=== PATIENT | male | born 1935 | race African-American/Black ===

== ENCOUNTER 2016-08-18 09:04 | Day surgery (SDC) | payer OTHER ==
[~2016-08-18] VITALS: Ht 167.6 cm; Wt 66.4 kg
[2016-08-18 09:33] VITALS: Ht 167.6 cm; Wt 66.4 kg
[2016-08-18 09:58] VITALS: BP 151/86; PULSE 68; RESP 23
[2016-08-18] MEDS ORDERED: CLOP300T15 PO (09:59)
[2016-08-18] MEDS ORDERED: ATORVASTATIN PO (09:59)
[2016-08-18] MEDS ORDERED: PANT40TA4 PO (09:59)
[2016-08-18] MEDS ORDERED: CARVEDILOL PO (09:59)
[2016-08-18] MEDS ORDERED: ISM20 PO (09:59)
[2016-08-18] MEDS ORDERED: ASPI81TA3 PO (09:59)
[2016-08-18] MEDS ORDERED: LORA-441 PO (09:59)
[2016-08-18] MEDS ORDERED: LOSARTAN PO (09:59)
[2016-08-18] MEDS ORDERED: DOCU-144 PO (09:59)
[2016-08-18] MEDS ORDERED: FLOMAX PO (09:59)
[2016-08-18] MEDS ORDERED: FAMO20TA18 PO (09:59)
[2016-08-18] MEDS ORDERED: CLONIDINE PO (09:59)
[2016-08-18] MEDS ORDERED: PROPOFOL 20 ML ONE (10:03)
[2016-08-18] MEDS ORDERED: MIDAZOLAM 1 MG/ML 2 ML INJ ONE (10:04)
[2016-08-18] MEDS ORDERED: LIDOCAINE 2% (SDV) 5 ML INJ ONE (10:04)
[2016-08-18] MEDS ORDERED: FLUMAZENIL 0.5 MG INJ ONE (10:17)
[2016-08-18 11:04] VITALS: BP 149/83; PULSE 62; RESP 16
--- NOTE | 2016-08-18 12:08 | GILP ---
DATE OF PROCEDURE: 08/18/2016 NAME OF PROCEDURE: Esophagogastroduodenoscopy and biopsy. SURGEON: Anuradha Langley MD PREOPERATIVE DIAGNOSES: 1. Abdominal pain. 2. Chronic heartburn. 3. Weight loss. POSTOPERATIVE DIAGNOSES: 1. Gastroesophageal reflux disease. 2. Gastritis with erosions. 3. Gastric mucosal biopsies were taken for Helicobacter pylori test. INDICATION FOR THE PROCEDURE: Mr. Pawan Fuller is an 80-year-old male patient who had upper abdom inal pain and chronic heartburn, not responding to therapy. The patient also had history of weight loss. The patient was scheduled for endoscopic examination for further evaluation. The procedure and possible complications were well explained to the patient. The patient understood and consented to the procedure. DESCRIPTION OF PROCEDURE: Under the influence of anesthesia, the gastroscope was carefully introduc ed into the esophagus and under direct vision, it was advanced to the stomach and through the pyloru s into the duodenal bulb and descending duodenum. FINDINGS: ESOPHAGUS: The mucosa was normal. STOMACH: The patient had gastritis with erosions. Gastric mucosal biopsies were taken for H. pylor i test. DUODENUM: Normal. He tolerated the procedure very well and there was no complication from the procedure. At the end o f the procedure, he was awake with stable vital signs and he was discharged home to the care of his family. IMPRESSION: 1. Gastroesophageal reflux disease. 2. Gastritis with erosions. 3. Gastric mucosal biopsies were taken for Helicobacter pylori test. PLAN: 1. Continue pantoprazole and Pepcid. 2. Await H. pylori test report. Dictated By: ANURADHA NOVA/AVTAR Conf#: [id number] DID#: [id number] CC: ANURADHA LANGLEY MD;*EndCC*
--- NOTE | 2016-08-19 13:45 | CONS ---
DATE OF ADMISSION: 08/18/2016 DATE OF CONSULTATION: PATIENT NAME: PAWAN SAXENA TYPE OF CONSULTATION: Preoperative gastroenterology consultation. Dear Dr. Timmons: I thank you very much for this kind referral. HISTORY OF PRESENT ILLNESS: Mr. Pawan Saxena is an 80-year-old male patient who has been referred to me for further evaluation of upper abdominal pain and chronic heartburn, not responding to thera py with pantoprazole and Pepcid. There is no definite past history of peptic ulcer disease. He is not taking any nonsteroidal anti-inflammatory agent other than baby aspirin a day. There is no hist ory of gallstones. He does not have any fever, chills or jaundice. There is no history of liver di sease. According to the patient's daughters, he had a recent abdominal CT scan done in the emergenc y room and it was normal. The patient has history of constipation, and he has been taking Colace. He is hypertensive. He is not a diabetic. He does not have any heart disease. He has got a histor y of chronic bronchitis. The patient also has got chronic kidney disease. He has hyperlipidemia. He also has got peripheral vascular disease and he is on Plavix. He has got an enlarged prostate. He is status post appendectomy. SOCIAL HISTORY: He is a nonsmoker. He does not abuse alcohol. FAMILY HISTORY: There is no family history of gastrointestinal tract neoplasm. ALLERGIES: THERE IS NO HISTORY OF SIGNIFICANT DRUG ALLERGY. MEDICATIONS: 1. Carvedilol. 2. Clonidine. 3. Losartan. 4. Atorvastatin. 5. Flomax. 6. Aspirin 81 mg. 7. Plavix. 8. Ativan. 9. Isosorbide mononitrate. 10. Pantoprazole 11. Pepcid. 12. Colace. PHYSICAL EXAMINATION: He is 5 feet 6 inches tall and he weighs 140 pounds. HEART: Examination of the heart reveals normal first and second heart sounds. LUNGS: Clear. ABDOMEN: Soft without any distention. Liver and spleen are not palpable. There are no masses. Th ere is no focal tenderness. Normal bowel sounds are heard. CENTRAL NERVOUS SYSTEM: Does not reveal any focal neurological deficit. IMPRESSION: 1. Upper abdominal pain and chronic heartburn, not responding to therapy with pantoprazole and Pepc id. 2. The patient has been taking baby aspirin a day. 3. The patient had abdominal CT scan and according to the daughter, it was normal. 4. History of constipation. 5. The patient is on Colace. 6. Hypertension. 7. Hyperlipidemia. 8. Chronic bronchitis. 9. Chronic kidney disease. 10. Enlarged prostate. 11. Peripheral vascular disease. 12. The patient is on Plavix. 13. The patient is also taking Ativan and Tylenol #3. PLAN: 1. Continue pantoprazole and Pepcid. 2. Endoscopic examination for further evaluation. 3. Because of the multiple medical problems and the patient's age, he needs monitored anesthesia ca re for the procedure. The procedure and possible complications are well explained to the patient and his daughter. I thank you once again. With warmest personal regards, Dictated By: ANURADHA NOVA/AVTAR Conf#: [id number] DID#: [id number]
== END 2016-08-18 14:58 | disposition home or self-care (01) ==
LOC: GIL 09:04
PROVIDERS: ATTEND Internal Medicine Gastroenterology
DX: K21.9 Gastro-esophageal reflux disease without esophagitis (principal); K29.60 Other gastritis without bleeding; I12.9 Hypertensive chronic kidney disease with stage 1 through stage 4 chronic kidney disease, or unspecified chronic kidney disease; N18.9 Chronic kidney disease, unspecified; E78.5 Hyperlipidemia, unspecified; I73.9 Peripheral vascular disease, unspecified; Z79.02 Long term (current) use of antithrombotics/antiplatelets; Z79.82 Long term (current) use of aspirin
CPT/HCPCS: 43239; 87081; J2250; Z7610